=== PATIENT | male | born 1945 | race Caucasian/White ===

== ENCOUNTER 2023-12-20 09:25 | Day surgery (SDC) | payer MEDICARE, OTHER, SELFPAY ==
[2023-12-20 10:06] VITALS: BP 165/81
[2023-12-20 10:08] VITALS: BMI 32.0
[2023-12-20 10:13] LABS: Hematocrit 42.5 % (39.0-52.0); Hemoglobin 14.6 g/dL (13.0-18.0); Mean Corp Hgb Conc. 34.4 g/dL (33.0-37.0); Mean Corpuscular Hgb 31.5 pg (27.0-31.0); Mean Corpuscular Volume 91.8 fL (80.0-94.0); Mean Platelet Volume 9.8 fL (7.4-10.4); Platelet Count 197 10^3/uL (130-400); Red Blood Cell Count 4.63 10^6/uL (4.70-6.10); Red Cell Dist. Width 11.9 % (11.5-14.5); White Blood Cell Count 4.8 10^3/uL (4.8-10.8)
[2023-12-20 10:17] VITALS: BP 165/81
[2023-12-20 10:27] LABS: Blood Urea Nitrogen 15 mg/dl (9-20); Calcium 9.6 mg/dl (8.4-10.2); Carbon Dioxide 24 mmol/L (22-30); Chloride 104 mmol/L (98-107); Estimated Creatinine Clearance 85 ml/min; Glucose 92 mg/dl (70-99); Potassium 4.2 mmol/L (3.5-5.1); Sodium 138 mmol/L (135-145); eGFR > 60.00
[2023-12-20] MEDS: NSS 278 ML IV (10:34)
[2023-12-20 11:55] LABS: ACT-LR - POC 194 Seconds (116-155)
[2023-12-20 12:06] LABS: ACT-LR - POC 213 Seconds (116-155)
[2023-12-20 12:25] VITALS: BP 143/89
--- NOTE | 2023-12-20 13:00 | ITS.CL.CATH ---
Software Tools Engineer - Catheterization
Cardiac Catheterization
Procedure Report:
CARDIAC CATHETERIZATION REPORT
Date of Procedure: 12/20/2023
Referring: Mitul Aguero DO
Indication: Abnormal coronary CT angiogram preop for radical neck surgery
HEMODYNAMIC DATA
AO: 132/64
LV: 132/17
LEFT VENTRICULOGRAPHY: Hyperdynamic left ventricular wall motion with EF 72%
CORONARY ANGIOGRAPHY
Dominance: Right
Left Main: The LAD is severely calcified and there is ventricularization upon engagement with a 5 [place] diagnostic JL 4. The degree of left main coronary artery stenosis is angiographically ambiguous
LAD: The LAD is severely calcified. There is a long diffuse mild proximal LAD disease. 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
first diagonal branch across the takeoff of the second septal case management manager. There is a focal 60% mid LAD lesion approximately 15 mm downstream of the saccular aneurysm. The distal LAD has mild luminal disease. The large first diagonal branch has
diffuse mild coronary disease
Circumflex: Large distribution vessel with moderate proximal calcification mild luminal disease throughout its course
RCA: The RCA is severely calcified and occluded in the midportion. There are well-developed collaterals supplying the distal right posterolateral branch and backfilling into the AV groove. The RPDA appears to be severely and diffusely diseased.
FloWire assessment: At the conclusion the diagnostic study, we proceeded with FloWire assessment of the left main disease. Heparin was used for anticoagulation. A 5 [place] JL 4 guide catheter was advanced to the aortic root and a [place] wire
advanced through the guide catheter and normalized in the aorta. The wire was then withdrawn back into the catheter. We were not able to get the JL 4 to engage the left coronary artery and ultimately replaced this guide with a JL 3.5 guide.
Again, the [place] wire was normalized with the tip of the guide in the aorta. The wire was then withdrawn back into the guide and we were able to engage the left main again causing ventricularization of the arterial waveform. The wire was
advanced into the proximal LAD. We were unable to advance the wire past the saccular aneurysm in the mid LAD. Guide catheter was pulled back into the aorta. iFR measurements were 0.88, 0.87, 0.88. These are consistent with flow-limiting disease.
The wire was then withdrawn back into the left main and redirected into the circumflex artery. iFR measurements were 0.77, 0.78, and 0.80. These are all consistent with flow-limiting disease. Pullback into the guide position in the aorta
demonstrated the left main coronary artery to be the culprit location. This point the procedure was terminated.
Closure Device: None-the procedure was performed via the right radial artery. The Farrukh's test was normal prior to the procedure.
Radiation (mGy): 477
DAP (cm2.Gy): 43.7
Fluoroscopy time: 9.8 minutes
CONCLUSIONS
1: Hyperdynamic left ventricular wall motion with EF 72%
2: Severe calcific multivessel CAD. The left main coronary artery disease is flow-limiting by FloWire assessment
3. There is no role for percutaneous intervention in this anatomy. There may be a survival advantage for CABG depending on his long-term prognosis following surgical treatment for his recurrent head and neck cancer
4. Recommend treatment of his recurrent neck mass. Plavix may be discontinued 1 week or more prior to elective surgery. Would continue aspirin if at all possible to help lower the risk of ischemic cardiac complication of his noncardiac surgery.
Discussion with the patient about the pros and cons of CABG should be deferred until there is a prognosis made following his recurrent cancer treatment.
5. Continue antianginal medications and high intensity statin
Copy to: Mitul Aguero DO, You Cornejo DO (LovellJOSE CARLOS), Celso Zazueta MD
Henrique Briceno MD, MERGED WITH [facility], [facility]
[2023-12-20 14:45] VITALS: BP 156/69
--- NOTE | 2023-12-20 16:36 | W.PN.UPDATE ---
Update Note
Progress Note Update
78 y/o M s/p cardiac catheterization. He feels well after his procedure, no CP or SOB. Radial cath site C/D/I, soft, no hematoma.
Resume home meds.
Activity restrictions reviewed.
F/U with cardiology in 3 weeks.
Stable for discharge.
== END 2023-12-20 16:15 | disposition home or self-care (01) ==
LOC: CATH 09:25
PROVIDERS: ATTENDING PHYSICIAN Internal Medicine Cardiovascular Disease; FAMILY PHYSICIAN Family Medicine; OTHER PHYSICIAN Internal Medicine Cardiovascular Disease
DX: I25.10 Atherosclerotic heart disease of native coronary artery without angina pectoris (principal); I25.84 Coronary atherosclerosis due to calcified coronary lesion; Z79.02 Long term (current) use of antithrombotics/antiplatelets; R93.89 Abnormal findings on diagnostic imaging of other specified body structures; Z79.82 Long term (current) use of aspirin
CPT/HCPCS: 80048; 85027; 85347; 93458; 93571; 93572; C1894; Q9967

== ENCOUNTER 2023-12-31 06:18 | Inpatient (IN) | payer MEDICARE, OTHER, SELFPAY ==
[2023-12-26 08:07] VITALS: BMI 33.8
[2023-12-31] VITALS (13 sets, daily range): BP systolic 102–165; BP diastolic 60–84; BMI 33.8
[2023-12-31] MEDS: TYLENOL 1000 MG PO (10:30)
[2023-12-31] MEDS: HEPARIN 5000 UNITS SC (10:31)
[2023-12-31] MEDS: NORMOSOL-R 1000 IV (10:37)
--- NOTE | 2023-12-31 13:29 | OR.RPT ---
Operative Report
Operative Report
DATE OF OPERATION: December 31, 2023
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
POSTOPERATIVE DIAGNOSIS: Same
SURGEON: Celso Zazueta M.D.
OPERATION: Right selective level 2b and 3 neck dissection - 93672
ANESTHESIA: GET
ESTIMATED BLOOD LOSS: 5 cc
DRAINS: None
SPECIMEN: rt neck tissue levels 2b and 3
FINDINGS: Lymphadenopathy
COMPLICATIONS:�None
PROCEDURE:
The patient was taken to the operating room and placed in the usual supine position. After adequate general endotracheal anesthesia was established, the patient�s neck was extended, prepped, and draped in the typical sterile fashion. The head was
turned to the left. The old hockey stick incision was reopened from the mastoid process to the lower anterior neck. The skin incision was made with the #15 blade, which was taken through the skin into the subcutaneous tissue. The underlying platysma
muscle was divided, and subplatysmal flaps were created superiorly to the mandible and inferiorly to the clavicle. The sternocleidomastoid muscle into the sternum and the clavicle insertion to the angle of the mandible were dissected from its
surrounding fascia and areolar tissue. During this process, the greater auricular nerve and the external jugular vein were dissected and preserved.
The dissection of the sternocleidomastoid muscle began with a longitudinal incision over the fascia along the entire length of the muscle. The external jugular vein was transected close to the posterior border of the sternocleidomastoid muscle. The
vein was then included in the specimen and dissected forward with the fascia of the sternocleidomastoid muscle. The dissection reached the anterior border and the posterior aspect of the sternocleidomastoid muscle. At this time, the spinal accessory
nerve was identified below the upper half of the sternocleidomastoid muscle, which was dissected and preserved throughout its course.
The fascia of the digastric triangle is dissected downward, taking care to stay below the marginal mandibular nerve. The sternocleidomastoid is dissected off the deep layer of the investing fascia and retracted posteriorly. The fascia and nodes of
level II are dissected from the mastoid downward, exposing the internal jugular vein at the skull base, and the spinal accessory nerve entering the upper part of the sternocleidomastoid. The lymph nodes around and behind the spinal accessory nerve
in level IIB were carefully dissected and swept inferiorly. Also, the submandibular gland and hypoglossal nerve were identified and preserved. The sternocleidomastoid is retracted posteriorly. The dissection is completed by stripping the carotid
sheath from the anterior surfaces of the internal jugular vein and carotid artery and completing the dissection anteriorly to the edge of the strap muscles, taking level 3 lymph nodes. The vagus nerve was identified and preserved.
After obtaining adequate hemostasis, the strap muscle was approximated with #3-0 Vicryl in a running fashion, and platysma muscles were reapproximated with #3-0 Vicryl in an interrupted fashion, and the skin was approximated with #4-0 Monocryl in a
running subcuticular fashion. Steri-strips and sterile dressings were placed. The patient tolerated the procedure well. The final instrument, needle, and sponge counts were correct.
--- NOTE | 2023-12-31 13:31 | W.IMMPOSTOP ---
Surgical Immed Post Op Note
-
Primary Surgeon: Celso Zazueta MD
Assisting Surgeon: Su Terrazas
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
Post-op Diagnosis: same
Procedure Performed: Right selective level 2b and 3 neck dissectionn
Anesthesia Type: General
Specimen / Cultures: Right level 2b and 3 cervical lymph nodes
Estimated Blood Loss: 5cc
Complications: none
Operative Findings: lymphadenopathy consistent with metastatic disease.
[2023-12-31] MEDS: TYLENOL 650 MG PO ×2 (16:30→21:27)
--- NOTE | 2023-12-31 16:47 | PTCARENOTE ---
1600: Patient arrived to 2S. Head to toe assessment completed. Neurological assessment completed and WNL. Patient denies pain at this time. 4X4 dressing on R side of neck. Small amount of old bloody drainage noted on dressing. Patient ambulated with
an assist x1 to the bathroom to urinate. Call carrasco within reach and bed in lowest position. Patients home medications sent to the pharmacy.
[2023-12-31] MEDS: ALTACE 2.5 MG PO (21:26)
[2023-12-31] MEDS: PEPCID 20 MG PO (21:27)
[2023-12-31] MEDS: CRESTOR 20 MG PO (21:28)
[2023-12-31] MEDS: MAG-TAB SR 84 MG PO (22:05)
[2024-01-01] MEDS: TYLENOL 650 MG PO ×2 (00:17→07:59)
[2024-01-01 03:45] VITALS: BP 125/72
[2024-01-01] MEDS: TYLENOL PO (05:11)
[2024-01-01] MEDS: SYNTHROID 150 MCG PO (06:21)
--- NOTE | 2024-01-01 07:20 | W.DS.TRANS ---
DC Summary - Sales Research Analyst
-
Discharge Instructions:
Sleep Apnea Risk Intermediate
Discharge Diagnosis/Procedures metastatic thyroid cancer
Diet No restrictions
Activity As tolerated
Driving Restrictions No driving for 24 hours
Instructions:
Stand-Alone Forms:
Changes to Home Medications: No
Discharge Medications:
DC Medications w/original date entered in [employer]
Plant Based Dha, Epa 2 cap PO DAILY 12/12/23
ascorbic acid (vitamin C) 500 mg tablet (Vitamin C) 500 mg PO DAILY 12/12/23
aspirin 81 mg tablet,delayed release 81 mg PO DAILY 12/12/23
cholecalciferol (vitamin D3) 50 mcg (2,000 unit) capsule (Vitamin D3) 100 mcg PO DAILY 12/12/23
clopidogrel 75 mg tablet (Plavix) 75 mg PO DAILY 12/12/23
cyanocobalamin (vitamin B-12) 500 mcg tablet (Vitamin B-12) 500 mcg PO DAILY 12/12/23
famotidine 20 mg tablet 20 mg PO HS 12/12/23
isosorbide mononitrate 30 mg tablet,extended release 24 hr 30 mg PO DAILY 12/12/23
levothyroxine 150 mcg tablet 150 mcg PO DAILY 12/12/23
magnesium citrate 125 mg capsule 125 mg PO TID 12/12/23
metoprolol succinate 25 mg tablet,extended release 24 hr 25 mg PO DAILY 12/12/23
ramipril 2.5 mg capsule 2.5 mg PO HS 12/12/23
rosuvastatin 20 mg tablet 20 mg PO HS 12/20/23
Home Medication Changes
Pending Results: No
[2024-01-01 07:30] VITALS: BP 154/84
[2024-01-01] MEDS: MAG-TAB SR 84 MG PO (07:59)
[2024-01-01] MEDS: VITAMIN B-12 500 MCG PO (07:59)
[2024-01-01] MEDS: VITAMIN D3 (cholecalciferol) 100 MCG PO (07:59)
[2024-01-01] MEDS: VITAMIN C 500 MG PO (07:59)
[2024-01-01] MEDS: IMDUR (EXTENDED RELEASE) 30 MG PO (07:59)
[2024-01-01] MEDS: ASPIR LOW (ENTERIC COATED) 81 MG PO (07:59)
[2024-01-01] MEDS: TOPROL XL 25 MG PO (08:01)
--- NOTE | 2024-01-01 10:14 | CM ---
CM met with pt and noted dc order
Pt notes he is independent in room and no dc needs noted
He already calledfor ride home
IMM verbally completed and copy provided
Discharge Disposition- home no needs
--- NOTE | 2024-01-01 10:24 | W.DCSUMMARY ---
Discharge Summary
Discharge Data
Date of Admission: 12/31/23
Date of Discharge: 01/01/24
-
Pending Results: No
Hospital Course
Date of Admission: 12/31/23
Date of Discharge: 01/01/24
Principal diagnosis: Metastatic right cervical lymph nodes from thyroid cancer.
Procedure: Right modified neck dissection.
History of Present Illness: The patient is a 78-year-old man with a history of thyroid cancer who underwent total thyroidectomy and neck dissection in 2018. He presented with significant lymphadenopathy involving the right side of his neck,
consistent with metastatic papillary thyroid cancer. The patient was consented for a right modified neck dissection.
PMH: coronary artery disease, hypertension, and thyroid cancer.
Allergies: None to medications.
Physical Examination: HENT (Head, Ears, Nose, and Throat) is normocephalic and atraumatic. Palpable right level 2 and 3 cervical lymph nodes. His lungs were clear bilaterally. His heart had a regular rhythm and rate.
Hospital Course: The patient presented to the hospital on December 31, 2023, and underwent an uneventful right modified neck dissection. Postoperatively, the patient was transferred to a surgical floor where he recovered well without any problems. On
post-op day 1, the patient was discharged home. His condition on discharge was stable. Discharge Instructions: Follow-up with me in 7 to 10 days.
Discharge Plan
-
Patient Disposition: Home (Routine Discharge)
Discharge Diagnosis/Procedures: metastatic thyroid cancer
Condition: Good
Diet: No restrictions
Activity: As tolerated
Driving Restrictions: No driving for 24 hours
Activity Restrictions/Additional Instructions:
Call Dr. Zazueta's office ([phone] for an appointment for a follow-up visit.
Tylenol and/or motrin for pain
Referrals:
You Cornejo DO [Family Provider] -
Prescriptions:
Continued
isosorbide mononitrate 30 mg Tablet Extended Release 24 Hr
30 mg PO DAILY
clopidogrel [Plavix] 75 mg Tablet
75 mg PO DAILY
aspirin 81 mg Tablet,Delayed Release (Dr/Ec)
81 mg PO DAILY
famotidine 20 mg Tablet
20 mg PO HS
cyanocobalamin (vitamin B-12) [Vitamin B-12] 500 mcg Tablet
500 mcg PO DAILY
ascorbic acid (vitamin C) [Vitamin C] 500 mg Tablet
500 mg PO DAILY
ramipril 2.5 mg Capsule
2.5 mg PO HS
levothyroxine 150 mcg Tablet
150 mcg PO DAILY
metoprolol succinate 25 mg Tablet Extended Release 24 Hr
25 mg PO DAILY
cholecalciferol (vitamin D3) [Vitamin D3] 50 mcg (2,000 unit) Capsule
100 mcg PO DAILY
magnesium citrate 125 mg Capsule
125 mg PO TID
Plant Based Dha, Epa
2 cap PO DAILY
rosuvastatin 20 mg Tablet
20 mg PO HS
Discharge Orders:
Discharge Patient (As Directed); Ordered 01/01/24
Ordered By: Ceslo Zazueta
Discharge Date and Time
Print Language: SINHALA
== END 2024-01-01 11:02 | disposition home or self-care (01) | DRG 629 ==
LOC: 2 SOUTH 06:18
PROVIDERS: ADMITTING PHYSICIAN Surgery; FAMILY PHYSICIAN Family Medicine
PROC: 07T10ZZ Resection of Right Neck Lymphatic, Open Approach (ICD-10-PCS; 2023-12-31)
DX: C73 Malignant neoplasm of thyroid gland (principal); C77.0 Secondary and unspecified malignant neoplasm of lymph nodes of head, face and neck; E89.0 Postprocedural hypothyroidism; I10 Essential (primary) hypertension; I25.10 Atherosclerotic heart disease of native coronary artery without angina pectoris; K21.9 Gastro-esophageal reflux disease without esophagitis; R91.1 Solitary pulmonary nodule; M10.9 Gout, unspecified; Z92.3 Personal history of irradiation; Z79.82 Long term (current) use of aspirin; Z79.02 Long term (current) use of antithrombotics/antiplatelets; Z79.890 Hormone replacement therapy; Z86.16 Personal history of COVID-19
CPT/HCPCS: 88307; 88311; 88341; 88342; C9250

== ENCOUNTER → 2024-07-20 12:56 | Outpatient (REF) | payer MEDICARE, OTHER, SELFPAY | LOC: RAD 12:56 | PROVIDERS: ATTENDING PHYSICIAN Internal Medicine Medical Oncology | DX: C73 Malignant neoplasm of thyroid gland (principal); R91.8 Other nonspecific abnormal finding of lung field | CPT/HCPCS: 70491; 71260; Q9967 ==

== ENCOUNTER → 2025-01-25 11:48 | Outpatient (REF) | payer MEDICARE, OTHER, SELFPAY | LOC: RAD 11:48 | PROVIDERS: ATTENDING PHYSICIAN Internal Medicine Medical Oncology; FAMILY PHYSICIAN Family Medicine | DX: C73 Malignant neoplasm of thyroid gland (principal) | CPT/HCPCS: 70491; 71260; Q9967 ==

== ENCOUNTER → 2025-06-07 11:56 | Outpatient (REF) | payer MEDICARE, SELFPAY | LOC: RAD 11:56 | PROVIDERS: ATTENDING PHYSICIAN Physician Assistant; FAMILY PHYSICIAN Family Medicine | DX: C73 Malignant neoplasm of thyroid gland (principal) | CPT/HCPCS: 70491; 71260; Q9967 ==